=== PATIENT | male | born 1985 | race Caucasian/White ===

== ENCOUNTER 2021-05-16 15:16 | Outpatient (CLI) | payer SELFPAY ==
--- NOTE | 2021-05-16 13:00 | VAS_PTH ---
PATIENT: [facility]LU [facility]EMUS [id number] AGE/SX: 35/M ROOM: RE05/16/[address]: Dr. Darell Jay MD : 1985 BED: DIS: 05/16/2021 SPEC #: [id number] RECD: 05/16/21 15:00 STATUS: JON EULOGIO #: [id number] SAIRA: 05/16/21 13:[address]: Darell Jay DEPT: SURGICAL PATHOLOGY RECD BY: Francesca Rashid ENTERED: 05/19/21 08:04 SP TYPE: VAS OTHR DR: Dr. Anthony Alcantar MD Tissues: A - Vas deferens, NOS B - Vas deferens, NOS Procedures: Surgery Specimen Level II HEADER OPERATION: Bilateral partial vasectomy PRE-OP DIAGNOSIS: Sterilization TISSUE SUBMITTED: A ? Right vas deferens, B ? Left vas deferens MICROSCOPIC DIAGNOSIS A. Right vas deferens, segmental vasectomy: Complete segment of vas deferens with no pathologic change. B. Left vas deferens, segmental vasectomy: Complete segment of vas deferens with no pathologic change. AM:jenna 05/20/2021 MICROSCOPIC DESCRIPTION Slides are reviewed. GROSS DESCRIPTION A - Received is one container designated right vas deferens. The specimen consists of a tubular segment of mckeon soft tissue measuring 1.5 cm in length and 0.2 cm in diameter. The specimen is sectioned and submitted entirely in one cassette. B - Received is one container designated left vas deferens. The specimen consists of a tubular segment of mckeon soft tissue measuring 1.5 cm in length and 0.2 cm in diameter. The specimen is sectioned and submitted entirely in one cassette. / SJ:jenna 05/19/2021 TC:4 CPT: 32342 x2
== END 2021-05-16 23:59 | disposition short-term general hospital (02) ==
LOC: LABSPEC 15:16
PROVIDERS: PCP Family Medicine; Visit Provider Surgery
DX: Z30.2 Encounter for sterilization (principal)
CPT/HCPCS: 88302

== ENCOUNTER → 2021-08-07 | Outpatient (CLI) | payer SELFPAY ==
[2021-08-07 09:19] LABS: Semen Analysis Post Vas ABSENT
[2021-08-08 13:54] LABS: Pathologist Review Reviewed
== END | disposition home or self-care (01) ==
PROVIDERS: PCP Family Medicine; Referring Provider Surgery; Visit Provider Surgery
DX: Z30.2 Encounter for sterilization (principal)
CPT/HCPCS: 89321